=== PATIENT | male | born 1965 | race Caucasian/White ===

== ENCOUNTER 2018-12-05 13:53 | Inpatient (IN) | payer OTHER ==
[~2018-12-05] VITALS: Ht 185.4 cm; Wt 103.0 kg
[~2018-12-05 13:53] MED LIST: ENAL5TAB PO; FLUO10TA PO; TRAM100T13 PO; ZOLP10TA PO
--- NOTE | 2018-12-05 14:20 | NUR ---
PT A&OX4, RESP EVEN & UNLABORED, SPEECH CLEAR. PT C/O NUMBNESS TO RT LEG, INABILITY TO FLEX & EXTEND FEET BILAT. ABLE TO BEND KNEES BILAT.
--- NOTE | 2018-12-05 14:25 | NUR ---
GEORGE TO DENNIS ADDISON. PT CARE TRANSFERRED.
[2018-12-05] MEDS ORDERED: SODIUM CHLORIDE FLUSH 10ML SYR IVF ONE (14:30)
--- NOTE | 2018-12-05 14:34 | NUR ---
REPORT FROM WESTON COLLINS, ASSUMED CARE OF PT AT THIS TIME. IV ESTABLISHED, AWAITING MRI
--- NOTE | 2018-12-05 14:35 | NUR ---
BLOOD SENT TO LAB
[2018-12-05 14:46] LABS: BASOPHILS # (AUTO) 0.01 x10^3/uL (0-0.1); BASOPHILS % (AUTO) 0 % (0-1); EOSINOPHILS # (AUTO) 0.01 x10^3/uL (0-0.4); EOSINOPHILS % (AUTO) 0 % (1-7); LYMPHOCYTES # (AUTO) 0.69 x10^3/uL (1-3.4); LYMPHOCYTES % (AUTO) 11 % (22-44); MD NO; MEAN CORPUSCULAR HEMOGLOBIN 30.8 pg (27.5-34.5); MEAN CORPUSCULAR HGB CONC 33.3 g/dL (33.2-36.2); MEAN CORPUSCULAR VOLUME 92.3 fL (81-97); MEAN PLATELET VOLUME 7.7 fL (7.4-10.4); MONOCYTES # (AUTO) 0.33 x10^3/uL (0.2-0.8); MONOCYTES % (AUTO) 5 % (2-9); NEUTROPHILS # (AUTO) 5.36 x10^3/uL (1.8-6.8); NEUTROPHILS % (AUTO) 84 % (42-75); PLATELET COUNT 243 x10^3/uL (130-400); RED BLOOD COUNT 4.45 x10^6/uL (4.38-5.82); RED CELL DISTRIBUTION WIDTH 13.8 % (9.4-14.8)
--- NOTE | 2018-12-05 14:48 | NUR ---
PT TO MRI
[2018-12-05 14:52] LABS: ALBUMIN 4.1 g/dL (3.4-5.0); ANION GAP 3 mmol/L (5-15); CALCIUM 9.3 mg/dL (8.5-10.1); CHLORIDE 105 mmol/L (98-107); CREATININE 0.94 mg/dL (0.7-1.3)
[2018-12-05] MEDS ORDERED: GADOBUTROL 10 MMOL/10 ML PFS ONE (15:06)
--- NOTE | 2018-12-05 15:55 | NUR ---
PT RETURNED FROM MRI
--- NOTE | 2018-12-05 16:54 | NUR ---
PT TO BE ADMITTED, SURGERY IN AM WITH . AWAITING BED ASSIGNMENT
[2018-12-05] MEDS ORDERED: DEXAMETHASONE 4 MG/ML, 1ML IVPush ONE (17:00)
[2018-12-05] MEDS ORDERED: DEXAMETHASONE 4 MG/ML, 1ML ONE (17:07)
[2018-12-05] MEDS ORDERED: hydrALAzine 20 MG/ML, 1ML IVPush PRN (17:30)
[2018-12-05] MEDS ORDERED: POLYETHYLENE GLYCOL 17 GM PACKET PO PRN (17:30)
[2018-12-05] MEDS ORDERED: ONDANSETRON 2MG/ML, 2ML IVPush PRN (17:30)
[2018-12-05] MEDS ORDERED: ACETAMINOPHEN 325 MG TABLET PO PRN (17:30)
--- NOTE | 2018-12-05 17:30 | NUR ---
report to adrian bingham
[2018-12-05 18:27] VITALS: BP 156/91
[2018-12-05 19:11] VITALS: BP 145/73
[2018-12-05] MEDS ORDERED: ZOLPIDEM 10MG TABLET PO PRN (21:00)
[2018-12-06 00:13] VITALS: BP 142/68
[2018-12-06 07:35] VITALS: BP 152/78
[2018-12-06] MEDS: ENALAPRIL 5MG TABLET PO SCH (09:00)
[2018-12-06] MEDS: FLUOXETINE 10 MG CAP PO SCH (09:00)
[2018-12-06] MEDS ORDERED: SODIUM CHLORIDE 0.9% 1,000 ML IV SCH (09:30)
[2018-12-06] MEDS: morphine SULFATE 10 MG/ML, 1ML IVPush PRN ×2 (10:21→14:02)
[2018-12-06 10:23] LABS: INTERNATIONAL NORMALIZED RATIO 0.98 (0.93-1.1); PROTHROMBIN TIME 10.3 Seconds (9.6-11.5)
[2018-12-06 13:03] VITALS: BP 155/82
[2018-12-06] MEDS ORDERED: THROMBIN 20,000 UNIT VIAL TP ONE (14:43)
[2018-12-06] MEDS ORDERED: EPINEPHRINE 1 MG/ML, 1ML ONE (14:43)
[2018-12-06] MEDS ORDERED: BACITRACIN 50,000 UNIT ONE (14:43)
[2018-12-06] MEDS ORDERED: BUPIVACAINE/PF 0.5% ONE (14:43)
[2018-12-06] MEDS ORDERED: THROMBIN 5,000 UNIT VIAL TP ONE ×2 (14:47→17:10)
[2018-12-06] MEDS ORDERED: BACITRACIN OINT 500U/GM, 15 GM ONE (14:47)
[2018-12-06] MEDS ORDERED: FENTANYL PF 250 MCG/5ML ONE (15:25)
[2018-12-06] MEDS ORDERED: MIDAZOLAM 1 MG/ML, 2ML ONE (15:25)
[2018-12-06] MEDS ORDERED: ONDANSETRON 2MG/ML, 2ML ONE (15:52)
[2018-12-06] MEDS ORDERED: CEFAZOLIN 1,000 MG ONE (15:52)
[2018-12-06] MEDS ORDERED: SUCCINYLCHOLINE 20 MG/ML, 10ML ONE (15:52)
[2018-12-06] MEDS ORDERED: DEXAMETHASONE 4 MG/ML, 1ML ONE (15:52)
[2018-12-06] MEDS ORDERED: LABETALOL 5MG/ML, 20ML IV PRN (16:00)
[2018-12-06] MEDS ORDERED: HALOPERIDOL 5 MG/ML IV PRN (16:00)
[2018-12-06] MEDS ORDERED: METOPROLOL 1 MG/ML, 5ML IV PRN (16:00)
[2018-12-06] MEDS ORDERED: PROCHLORPERAZINE 5 MG/ML, 2ML IV PRN (16:00)
[2018-12-06] MEDS ORDERED: hydrALAzine 20 MG/ML, 1ML IV PRN (16:00)
[2018-12-06] MEDS ORDERED: PROMETHAZINE 25 MG/ML, 1ML IV PRN (16:00)
[2018-12-06] MEDS ORDERED: DIPHENHYDRAMINE 50 MG/ML, 1ML IVPush PRN (16:00)
[2018-12-06] MEDS ORDERED: OXYcodone 5 MG/5 ML ORAL.SOL UDC PO PRN (16:00)
[2018-12-06] MEDS ORDERED: FENTANYL PF 100 MCG/2ML IV PRN (16:00)
[2018-12-06] MEDS ORDERED: MEPERIDINE/PF 25MG/0.5ML IVPush PRN (16:00)
[2018-12-06] MEDS ORDERED: PROPOFOL 50 ML ONE (16:50)
[2018-12-06] MEDS ORDERED: HYDROmorphone 2 MG/ML, 1ML ONE (17:53)
[2018-12-06] MEDS ORDERED: OXYcodone 5 MG/5 ML ORAL.SOL UDC ONE (17:53)
[2018-12-06] MEDS: HYDROmorphone 2 MG/ML, 1ML IVPush PRN ×3 (18:00→18:59)
[2018-12-06] MEDS ORDERED: KETOROLAC 30 MG/1 ML IV ONE (20:00)
[2018-12-06] MEDS ORDERED: MAGNESIUM HYDROXIDE 8%, 30ML UDC PO PRN (20:00)
[2018-12-06] MEDS ORDERED: ACETAMINOPHEN 325 MG TABLET PO PRN (20:00)
[2018-12-06] MEDS ORDERED: ACETAMINOPHEN 650 MG SUPP PR PRN (20:00)
[2018-12-06] MEDS ORDERED: HYDROmorphone 2 MG/ML, 1ML IM PRN (20:00)
[2018-12-06] MEDS ORDERED: PROMETHAZINE 25 MG/ML, 1ML IM PRN (20:00)
[2018-12-06] MEDS ORDERED: METHOCARBAMOL 1,000 MG in DEXTROSE 5% 100 ML IV ONE (20:00)
[2018-12-06] MEDS ORDERED: NS + 20MEQ KCL 1,000 ML IV SCH (20:00)
[2018-12-06] MEDS ORDERED: ONDANSETRON 2MG/ML, 2ML IV PRN (20:00)
[2018-12-06] MEDS ORDERED: PHARMACY MAY ADJ FOR RENAL FX MC PRN (20:00)
[2018-12-06] MEDS ORDERED: BISACODYL 10 MG SUPP PR PRN (20:00)
[2018-12-06] MEDS ORDERED: ZOLPIDEM 5MG TABLET PO PRN (21:00)
[2018-12-06] MEDS: DOCUSATE 100 MG CAPSULE PO SCH (21:00)
[2018-12-07] MEDS: CEFAZOLIN PMX 2GM/50ML 50 ML IVPB SCH ×3 (00:04→16:06)
[2018-12-07 00:16] VITALS: BP 144/67
[2018-12-07 04:10] VITALS: BP 126/56
[2018-12-07] MEDS: KETOROLAC 30 MG/1 ML IM/IV SCH ×3 (04:58→22:57)
[2018-12-07] MEDS: METHOCARBAMOL 750 MG in DEXTROSE 5% 100 ML IV SCH ×3 (04:58→22:57)
[2018-12-07] MEDS: DIPHENHYDRAMINE 50 MG/ML, 1ML IVPush PRN ×2 (05:10→22:57)
[2018-12-07 05:32] LABS: BASOPHILS # (AUTO) 0.04 x10^3/uL (0-0.1); BASOPHILS % (AUTO) 1 % (0-1); EOSINOPHILS % (AUTO) 0 % (1-7); LYMPHOCYTES # (AUTO) 0.88 x10^3/uL (1-3.4); LYMPHOCYTES % (AUTO) 12 % (22-44); MD NO; MEAN CORPUSCULAR HEMOGLOBIN 31.5 pg (27.5-34.5); MEAN CORPUSCULAR HGB CONC 33.8 g/dL (33.2-36.2); MEAN CORPUSCULAR VOLUME 93.3 fL (81-97); MEAN PLATELET VOLUME 7.8 fL (7.4-10.4); MONOCYTES # (AUTO) 0.61 x10^3/uL (0.2-0.8); MONOCYTES % (AUTO) 8 % (2-9); NEUTROPHILS # (AUTO) 5.73 x10^3/uL (1.8-6.8); NEUTROPHILS % (AUTO) 79 % (42-75); PLATELET COUNT 236 x10^3/uL (130-400); RED BLOOD COUNT 3.98 x10^6/uL (4.38-5.82)
[2018-12-07 05:37] LABS: CHLORIDE 104 mmol/L (98-107)
[2018-12-07 05:41] LABS: ANION GAP 1 mmol/L (5-15); CALCIUM 8.7 mg/dL (8.5-10.1); CREATININE 0.81 mg/dL (0.7-1.3)
[2018-12-07 06:24] VITALS: BP 147/79
[2018-12-07] MEDS: SENNA/DOCUSATE TABLET PO SCH (08:40)
[2018-12-07] MEDS: DOCUSATE 100 MG CAPSULE PO SCH ×2 (08:41→22:57)
[2018-12-07] MEDS: FLUOXETINE 10 MG CAP PO SCH (08:42)
[2018-12-07] MEDS: ENALAPRIL 5MG TABLET PO SCH (08:42)
[2018-12-07 13:10] VITALS: BP 145/79
[2018-12-07] MEDS: HYDROcodone/APAP 10/325 MG TABLET PO PRN (16:56)
[2018-12-07 19:29] VITALS: BP 117/56
[2018-12-08] MEDS: CEFAZOLIN PMX 2GM/50ML 50 ML IVPB SCH ×3 (01:12→17:09)
[2018-12-08] MEDS: HYDROmorphone 2MG TABLET PO PRN ×2 (04:47→22:44)
[2018-12-08 05:21] VITALS: BP 121/63
[2018-12-08 05:32] LABS: ANION GAP 3 mmol/L (5-15); CALCIUM 8.6 mg/dL (8.5-10.1); CHLORIDE 108 mmol/L (98-107)
[2018-12-08 05:33] LABS: CREATININE 0.96 mg/dL (0.7-1.3)
[2018-12-08 05:46] LABS: BASOPHILS # (AUTO) 0.03 x10^3/uL (0-0.1); BASOPHILS % (AUTO) 1 % (0-1); EOSINOPHILS % (AUTO) 2 % (1-7); LYMPHOCYTES # (AUTO) 1.63 x10^3/uL (1-3.4); LYMPHOCYTES % (AUTO) 29 % (22-44); MD NO; MEAN CORPUSCULAR HEMOGLOBIN 30.6 pg (27.5-34.5); MEAN CORPUSCULAR HGB CONC 33.2 g/dL (33.2-36.2); MEAN CORPUSCULAR VOLUME 92.2 fL (81-97); MEAN PLATELET VOLUME 7.6 fL (7.4-10.4); MONOCYTES # (AUTO) 0.53 x10^3/uL (0.2-0.8); MONOCYTES % (AUTO) 10 % (2-9); NEUTROPHILS # (AUTO) 3.27 x10^3/uL (1.8-6.8); NEUTROPHILS % (AUTO) 59 % (42-75); PLATELET COUNT 240 x10^3/uL (130-400); RED BLOOD COUNT 4.03 x10^6/uL (4.38-5.82); RED CELL DISTRIBUTION WIDTH 13.7 % (9.4-14.8)
[2018-12-08 06:23] VITALS: BP 138/71
[2018-12-08] MEDS: KETOROLAC 30 MG/1 ML IM/IV SCH ×3 (06:33→21:00)
[2018-12-08] MEDS: METHOCARBAMOL 750 MG in DEXTROSE 5% 100 ML IV SCH ×2 (06:33→15:28)
[2018-12-08] MEDS: DOCUSATE 100 MG CAPSULE PO SCH ×2 (08:10→22:44)
[2018-12-08] MEDS: FLUOXETINE 10 MG CAP PO SCH (08:10)
[2018-12-08] MEDS: SENNA/DOCUSATE TABLET PO SCH (08:10)
[2018-12-08] MEDS: ENALAPRIL 5MG TABLET PO SCH (08:11)
[2018-12-08] MEDS: HYDROcodone/APAP 10/325 MG TABLET PO PRN (11:21)
[2018-12-08 14:04] VITALS: BP 98/55
[2018-12-08 14:28] VITALS: BP 146/77
[2018-12-08 18:46] VITALS: BP 146/79
[2018-12-08] MEDS: DIPHENHYDRAMINE 50 MG/ML, 1ML IVPush PRN (22:44)
[2018-12-09 01:30] VITALS: BP 134/87
[2018-12-09] MEDS: METHOCARBAMOL 750 MG in DEXTROSE 5% 100 ML IV SCH (01:36)
[2018-12-09] MEDS: CEFAZOLIN PMX 2GM/50ML 50 ML IVPB SCH ×2 (03:08→11:00)
[2018-12-09] MEDS: HYDROmorphone 2MG TABLET PO PRN ×2 (03:56→12:44)
[2018-12-09 06:45] VITALS: BP 144/75
[2018-12-09] MEDS ORDERED: METHOCARBAMOL 750 MG TABLET PO SCH (08:00)
[2018-12-09] MEDS: DOCUSATE 100 MG CAPSULE PO SCH (08:14)
[2018-12-09] MEDS: SENNA/DOCUSATE TABLET PO SCH (08:14)
[2018-12-09] MEDS: FLUOXETINE 10 MG CAP PO SCH (08:17)
[2018-12-09] MEDS: ENALAPRIL 5MG TABLET PO SCH (08:17)
[2018-12-09] MEDS ORDERED: FLUO10CA7 PO (10:50)
[2018-12-09] MEDS ORDERED: OXYC-307 PO (11:52)
[2018-12-09] MEDS ORDERED: METH750T2 PO (11:53)
[2018-12-09] MEDS ORDERED: DOCU-131 PO (11:54)
[2018-12-09] MEDS ORDERED: POLY17PO5 PO (11:55)
== END 2018-12-09 13:28 | disposition home or self-care (01) | DRG 519 ==
LOC: ED 16:38 → EDIP 16:54 → 3NE 17:41 → 4NOR 12-06 15:50 → DCLOUNGE 12-09 13:10
PROVIDERS: ADMIT Hospitalist; ATTEND Hospitalist
PROC: 01NB0ZZ Release Lumbar Nerve, Open Approach (ICD-10-PCS; 2018-12-06)
PROC: 00NY0ZZ Release Lumbar Spinal Cord, Open Approach (ICD-10-PCS; 2018-12-06)
PROC: 0SB20ZZ Excision of Lumbar Vertebral Disc, Open Approach (ICD-10-PCS; principal; 2018-12-06 16:00)
DX: M48.061 Spinal stenosis, lumbar region without neurogenic claudication (principal); G83.4 Cauda equina syndrome; F32.9 Major depressive disorder, single episode, unspecified; I10 Essential (primary) hypertension; I73.00 Raynaud's syndrome without gangrene; M16.0 Bilateral primary osteoarthritis of hip; Z88.8 Allergy status to other drugs, medicaments and biological substances; M21.371 Foot drop, right foot; M21.372 Foot drop, left foot; M51.26 Other intervertebral disc displacement, lumbar region; M54.40 Lumbago with sciatica, unspecified side; Z80.9 Family history of malignant neoplasm, unspecified; Z83.3 Family history of diabetes mellitus; Z96.643 Presence of artificial hip joint, bilateral; Z87.891 Personal history of nicotine dependence
CPT/HCPCS: 36415; 72100; 99291; S0020; 71045; 72158; 80048; 82040; 85025; 85610; 93005; 96374; A9585; G0378; J0171; J0690; J1100; J1170; J1885; J2250; J2270; J2405; J2704; J3010; J3480; J0330; J1200; J2800; J7030